=== PATIENT | female | born 1990 | race Caucasian/White ===

== ENCOUNTER 2019-10-27 04:56 | Inpatient (IN) | payer OTHER ==
[~2019-10-27] VITALS: Ht 157.5 cm; Wt 76.2 kg
[2019-10-27 05:05] VITALS: Ht 157.5 cm; Wt 76.2 kg
--- NOTE | 2019-10-27 05:19 | NUR ---
PT BIBA FROM [facility]. PT HAD HER G-TUBE DISLODGED S/P HAVING AN UNWITNESSED FALL. PER THE [employer] SOLUTION ARCHITECT AT [facility], PT WAS FOUND ON HER LEFT SIDE, DENIED ANY PAIN. PT IS A/OX1, KNOWS HER NAME. PER THE MEDIC, PT IS CONFUSED AT BASELINE. NO TRAUMA NOTED TO HEAD. PT IS TRACH'D. BREATHING IS E/U ON RA.
--- NOTE | 2019-10-27 06:36 | NUR ---
DR. CARLTON AT BEDSIDE ATTEMPTED TO REINSERT G-TUBE WITH NO SUCCESS. G-TUBE SITE COVERED ISLAND DRESSING
--- NOTE | 2019-10-27 06:47 | NUR ---
BOILER MAKER AT BEDSIDE FOR BLOOD DRAW
[2019-10-27 07:00] LABS: BASOPHIL % 0.6 % (0-2); PLATELET COUNT 255 x10^3mcL (130-400); RED CELL DISTRIBUTION WIDTH 13.3 % (11.5-14.5)
[2019-10-27] MEDS ORDERED: NOVAPLUS E40 MG/0.4 (07:05)
[2019-10-27] MEDS ORDERED: DILANTIN KAPSEA30 MG (07:05)
[2019-10-27] MEDS ORDERED: KEPPRA100 MG/M1 (07:05)
[2019-10-27 07:07] LABS: CALCIUM 8.9 mg/dL (8.5-10.1); CARBON DIOXIDE 32.1 mmol/L (21-32); CHLORIDE SERUM 100 mmol/L (98-107); CREATININE SERUM 0.5 mg/dL (0.6-1.0); GFR1 > 60 mL/min; GLUCOSE SERUM 97 mg/dL (74-106); POTASSIUM SERUM 3.6 mmol/L (3.5-5.1); SODIUM SERUM 138 mmol/L (136-145)
--- NOTE | 2019-10-27 07:14 | NUR ---
REPORT GIVEN TO ILIANA FOR CONTINUITY OF CARE. ALL QUESTIONS/CONCERNS ADDRESSED. PT'S MOTHER AT BEDSIDE.
[2019-10-27 07:16] LABS: ALBUMIN 3.4 g/dL (3.4-5.0); ALKALINE PHOSPHATASE 196 U/L (46-116); ALT/SGPT 47 U/L (14-59); AST/SGOT 19 U/L (15-37); BILIRUBIN TOTAL 0.2 mg/dL (0.20-1.00); CHOLESTEROL 170 mg/dL (<200); CHOLESTEROL/HDL RATIO 2.9; HDL CHOLESTEROL 59 mg/dL (40-60); TOTAL PROTEIN, SERUM 8.1 g/dL (6.4-8.2); TRIGLYCERIDES 63 mg/dL (<150)
--- NOTE | 2019-10-27 07:21 | NUR ---
RECEIVED REPORT FROM ASH MARINELLI. ASSUMED CARE. PT A/O X1. KNOWS NAME AND . KEEPS ASKING WHERE SHE IS REPEATEDLY. MOM AT BEDSIDE. TRACH AT RA. RESP E/U. NAD NOTED. WILL CONT TO MONITOR.
--- NOTE | 2019-10-27 08:24 | NUR ---
GAVE REPORT TO RICKY ON MS FLOOR
--- NOTE | 2019-10-27 09:00 | NUR ---
RECEIVED PT FROM ER. PT LAYING IN BED, MOTHER AT BEDSIDE. 29F PRESENTED TO ER AFTER HAVING A FALL AT [facility] HOME AND ASSOCIATED GT DISPLACEMENT. PT A/O TO SELF ONLY. TRACH WITH PMV TO RA, BREATHING EVEN AND UNLABORED. LUNGS CTA. NON PRODUCTIVE COUGH FOR AROUND 2 WEEKS PER MOM. PT WITH SCAR TO LEFT SIDE OF HEAD, DRY, NO REDNESS OR DRAINAGE, BUTT SAWYER. GT STOMA PINK WITH DRESSING. SEIZURE PRECAUTIONS IN PLACE. DENIES CANTU, DIZZINESS, PAIN. PT INCONTINENT OF BOWEL AND BLADDER. ACTIVE BOWEL SOUNDS. UNKNOWN LAST BM. WILL CONTINUE TO MONITOR. CALL LIGHT IN REACH. BED IN LOWEST POSITION.
[2019-10-27 09:05] LABS: MAGNESIUM 2.1 mg/dL (1.8-2.4); PHOSPHOROUS 3.6 mg/dL (2.5-4.9)
[2019-10-27] MEDS ORDERED: MULTI-VITAMIN W1 TAB GT (09:47)
[2019-10-27] MEDS ORDERED: CLARITIN10 MG GT (09:48)
[2019-10-27] MEDS ORDERED: DILANTIN100 MG GT (09:49)
[2019-10-27] MEDS ORDERED: KEPPRA500 MG GT (09:50)
[2019-10-27] MEDS ORDERED: DSS250 MG GT (09:52)
--- NOTE | 2019-10-27 10:28 | NUR ---
DR. CHIRINOS AT BEDSIDE. ATTEMPTED GT INSERTION, UNSUCCESSFUL. PER DR CHIRINOS WILL HAVE TO BE INSERTED TOMORROW. COVER STOMA WITH DRY DRESSING. PT LAYING IN BED WITH MOM AT BEDSIDE. WILL CONTINUE TO MONITOR. CALL LIGHT IN REACH. BED IN LOWEST POSITION.
[2019-10-27 11:35] LABS: microscopic required? NO
[2019-10-27 11:36] VITALS: BP 95/64
[2019-10-27 12:09] LABS: urine erythrocyte NEGATIVE (NEGATIVE)
--- NOTE | 2019-10-27 14:19 | NUR ---
PT LAYING IN BED RESTING. NO ACUTE DISTRESS NOTED. ADMIN IV ZOSYN. WILL CONTINUE TO MONITOR. CALL LIGHT IN REACH. BED IN LOWEST POSITION.
[2019-10-27 16:54] VITALS: BP 109/70
--- NOTE | 2019-10-27 17:17 | NUR ---
PT LAYING IN BED WITH MOM AT THE BEDSIDE. ADMIN FLU SHOT TO RIGHT ARM. PT TOLERATED WELL. MOM ASKING IF SHE COULD STAY OVERNIGHT WITH THE PT, INFORMED HER SHE NEEDS TO TALK TO FIREBRICK LAYER HELPER CHARGE NURSE TO GET OK. INFORMED MOM OF POC AND THAT SEIZURE MEDS WILL BE ADMIN VIA IV STARTING TONIGHT. WILL CONTINUE TO MONITOR. CALL LIGHT IN REACH. BED IN LOWEST POSITION.
--- NOTE | 2019-10-27 19:25 | NUR ---
PT RECEIVED A/O X1, CONFUSED, ABLE TO MAKE NEEDS KNOWN AND ANSWER SIMPLE QUESTIONS, SEIZURE PRECAUTIONS IN PLACE. MED-SURG, PT DENIES ANY CP/PRESSURE. PULSES PALPABLE, NO EDEMA PRESENT. BREATHING IS EVEN AND UNLABORED, TRACH W/ PMV ON RA NOTED, TRACHEA MIDLINE, NO RESP DISTRESS NOTED. ABD SOFT AND NONDISTENDED, PT DENIES ANY N/V. PT ADMITTED FOR GTUBE REPLACEDMENT, DRY DRSG NOTED TO GTUBE STOMA IN PLACE, CDI. VOIDS FREEY, EPISODES OF INCONTINENCE. GENERALIZED WEAKNESS, PT ABLE TO TURN AND REPOSITION INDEPENDENTLY. MOTHER AT BEDSIDE. IVF INFUSING WELL TO RAC, PATENT AND INTACT. NO ACUTE DISTRESS NOTED. BED IN LOWEST SETTING, SIDE RAILS UP X2, CALL LIGHT WITHIN REACH. WILL CONT TO MONITOR.
[2019-10-27 19:49] VITALS: BP 105/60
--- NOTE | 2019-10-27 21:30 | NUR ---
CALLED [facility] AND SPOKE WITH PHARMACIST-JULIANA REGARDING DILANTIN ADMINISTRATION. PER JULIANA, USE 0.22 FILTER AND OKAY TO ADMINISTER VIA IVPB WITH 50 ML NS OVER 30 MINS OR OKAY TO GIVE SLOW IVP FOR 4-5 MINS. WILL ADMINISTER MEDICATION APPROPRIATELY.
[2019-10-28 00:49] VITALS: BP 105/60
--- NOTE | 2019-10-28 00:57 | NUR ---
PT RESTING IN BED WITH EYES CLOSED, BUT IS EASILY AROUSABLE. BREATHING IS EVEN AND UNLABORED, NO RESP DISTRESS NOTED. NO S/S OF PAIN OBSERVED. IVF INFUSING WELL, SITE WNL. NO ACUTE DISTRESS NOTED. MOTHER AT BEDSIDE. PT NPO AT THIS TIME FOR PEG TUBE PLACEMENT, CONSENT FORMS AND CHECKLIST PLACED IN CHART. CALL LIGHT WITHIN REACH. WILL CONT TO MONITOR.
[2019-10-28 04:38] VITALS: BP 113/63
--- NOTE | 2019-10-28 06:00 | NUR ---
PT SLEPT WELL THROUGHOUT THE EVENING. BREATHING IS EVEN AND UNLABORED, TRACH COLLAR W/ SMV IN PLACE, NO RESP DISTRESS NOTED. PT SCHEDULED FOR PEG PLACEMENT TODAY, PT REMAINS NPO. NO ACUTE CHANGES ENCOUNTERED DURING SHIFT. ALL NEEDS MET AND ANTICIPATED. IVF INFUSING WELL, SITE WNL. SEIZURE PRECAUTIONS MAINTAINED, NO SEIZURE ACTIVITY NOTED DURING SHIFT. CALL LIGHT WITHIN REACH. WILL ENDORSE CARE TO AM NURSE.
[2019-10-28 06:05] LABS: BASOPHIL % 0.6 % (0-2); PLATELET COUNT 241 x10^3mcL (130-400); RED CELL DISTRIBUTION WIDTH 13.1 % (11.5-14.5)
[2019-10-28 06:42] LABS: CALCIUM 8.9 mg/dL (8.5-10.1); CARBON DIOXIDE 27.9 mmol/L (21-32); CHLORIDE SERUM 105 mmol/L (98-107); CREATININE SERUM 0.5 mg/dL (0.6-1.0); GFR1 > 60 mL/min; GLUCOSE SERUM 84 mg/dL (74-106); POTASSIUM SERUM 3.8 mmol/L (3.5-5.1); SODIUM SERUM 140 mmol/L (136-145)
--- NOTE | 2019-10-28 07:29 | NUR ---
PT IN NO ACUTE DISTRESS. CONTINUITY OF CARE ENDORSED TO LAM MARINELLI. ALL QUESTIONS AND CONCERNS ADDRESSED.
--- NOTE | 2019-10-28 07:37 | NUR ---
Report received from Melanie Atkinson RN. Patient in stable condition. Mother at bedside. Will continue to monitor.
--- NOTE | 2019-10-28 08:14 | NUR ---
Report given to MARTHA Hayes RN. Patient to have [facility] LAB DRAW. Order put in. Lab notified. MARTHA Hayes RN made aware. Patient and Patient's mother made aware. Will continue to monitor. Call light within reach.
[2019-10-28 09:18] VITALS: BP 100/65
--- NOTE | 2019-10-28 11:07 | NUR ---
Patient returned back from GI. No signs of distress noted. Mother at bedside. Will continue to monitor.
[2019-10-28 11:14] VITALS: BP 111/76
--- NOTE | 2019-10-28 11:57 | NUR ---
-PT WAS SEEN FOR DYSPHAGIA. PT HAD S/S OF ASPIRATION FOR PUREE DIET TRIALS.PT NEEDS ST SERVICE AND 2-3 TRIALS BEFORE UPGRADE TO PO. RECOMMENDATION CONTINUE WITH NPO STATUS.
--- NOTE | 2019-10-28 11:58 | NUR ---
ST Gurpreet, explained that patient to remain NPO at this time. Swallow test to be performed with hero suctioning assistance tomorrow. Will endorse to next shift and continue to monitor. Call light within reach.
--- NOTE | 2019-10-28 12:02 | NUR ---
AMMY Payan from [facility] at called to inquire whether resident of [facility] will be discharged today or not. Explained the plan for tomorrow regarding ST recommendations. Will continue to monitor. Call light within reach.
--- NOTE | 2019-10-28 12:17 | NUR ---
Patient found sitting in recliner. IV pulled out. Patient was asking where her mother was. Mother's phone number called on hospital telephone. Patient talking to mother on phone. Will continue to monitor. Call light within reach.
--- NOTE | 2019-10-28 12:57 | NUR ---
CALLED AND SPOKE WITH SAIMA LINDO TO CLAIRIFY TUBE FEED ORDER.
[2019-10-28 16:21] VITALS: BP 107/77
--- NOTE | 2019-10-28 19:20 | NUR ---
REPORT RECEIVED FROM DAY SHIFT RN. PATIENT WAS SEEN RESTING COMFORTABLY IN BED WITH FAMILY AT BEDSIDE. NO DISTRESS NOTED. BREATHING EVEN AND UNLABORED ON ROOM ARE. TRACH IN PLACE WITH PMV; INTACT. A/OX1; CONFUSED. ABLE TO FOLLOW COMMANDS AND MAKE NEEDS KNOWN. SEIZURE PRECAUTIONS IN PLACE FOR HX OF SEIZURE DISORDERS. GTUBE NOTED TO LEFT ABD W/ TUBE FEEDING JEVITY 1.2 AT 50ML/HR (GOAL) WITH FWF 70ML Q4H. 0ML OF RESIDUALS NOTED. TOLERATING WELL. IV TO THE RAC INFUSING WELL. PATENT AND INTACT. NO REDNESS OR SWELLING NOTED. DENIES CP. NO C/O PAIN. NPO. COMFORT AND SAFETY MEASURES IN PLACE. BED IS LOCKED AND IN THE LOWEST POSITION. SIDE RAILS UP X2. CALL LIGHT WITHIN REACH. WILL CONTINUE TO MONITOR.
--- NOTE | 2019-10-28 19:50 | NUR ---
REPORT GIVEN TO ROADS SUPERVISOR RN. PATIENT IN STABLE CONDITION. PEG TUBE WORKING. IV C/D/I. MOTHER AT BEDSIDE. ALL NEEDS MET.
[2019-10-28 21:15] VITALS: BP 101/56
--- NOTE | 2019-10-28 21:15 | NUR ---
CALLED PHARMACY TO CLARIFY DILANTIN AND KEPPRA ADMINISTRATION. MORNING DOSE GIVEN LATE DUE TO PATIENT BEING IN PROCEDURE, PHARMACIST NUSRAT CHANGE TIME AND WILL CALRIFY WITH ROUTE SAIMA LINDO.
--- NOTE | 2019-10-29 01:17 | NUR ---
IN TO ADMINISTER SCHEDULED DILANTIN. USED 0.22 MICRON IN-LINE FILTER PER ORDER. PATIENT DENIES PAIN. BREATHING E/U ON RA. TRACH IN PLACE. TUBE FEEDING INFUSING WELL. MOTHER AT BEDSIDE. SAFETY MEASURES IN PLACE. CALL LIGHT IS WITHIN REACH. WILL CONTINUE TO MONITOR.
--- NOTE | 2019-10-29 03:18 | NUR ---
RESTING W/ EYES CLOSED. NO DISTRESS NOTED. BREATHING E/U ON ROOM AIR. TRACH IN PLACE. NO SOB OR RESP DISTRESS NOTED. SAFETY MEASURES IN PLACE. WILL CONTINUE TO MONITOR.
[2019-10-29 06:08] VITALS: BP 106/43
--- NOTE | 2019-10-29 06:09 | NUR ---
RESTED IN LONG INTERVALS THROUGHOUT THE NIGHT. NO ACUTE CHANGES NOTED. NO DISTRESS NOTED. BREATHING E/U ON ROOM AIR. NO SOB NOTED. TRACH WITH PVM IN PLACE. DENIES CP. NO C/O PAIN. IV TO THE RAC. PATENT AND INTACT. NO REDNESS OR SWELLING NOTED. GTUBE TO MID ABD IN PLACE INFUSING WELL. RESIDUALS CHECKED 20ML NOTED AND RETURNED; TOLERATING WELL. FORMULA JEVITY 1.2 CONTINUOUS FEEDING AT 50ML/HR W/ FWF 70ML Q4H. MOTHER AT BEDSIDE THROUGHOUT THE NIGHT. ALL NEEDS AND CONCERNS ADDRESSED. SAFETY MEASURES IN PLACE. CALL LIGHT WITHIN REACH. WILL ENDORSE CARE TO DAY SHIFT RN.
[2019-10-29 06:55] LABS: CALCIUM 8.4 mg/dL (8.5-10.1); CARBON DIOXIDE 27.6 mmol/L (21-32); CHLORIDE SERUM 104 mmol/L (98-107); CREATININE SERUM 0.5 mg/dL (0.6-1.0); GFR1 > 60 mL/min; GLUCOSE SERUM 104 mg/dL (74-106); POTASSIUM SERUM 3.8 mmol/L (3.5-5.1); SODIUM SERUM 140 mmol/L (136-145)
[2019-10-29 06:58] LABS: PLATELET COUNT 237 x10^3mcL (130-400); RED CELL DISTRIBUTION WIDTH 13.3 % (11.5-14.5)
--- NOTE | 2019-10-29 07:10 | NUR ---
REVIEVED PT RESTING IN BED WITH NO C/O PAIN OR DISTRESS. A/OX1-2 WITH CONFUSION. SEIZURE PRECAUTIONS IN PLACE. LUNGS CTAB. TRACH WITH PMV AND ON RA. GT IN PLACE/CDI AND RECIEVING JEVITY 1.2 AT 50ML/HR. RAC IV CDI AND PATENT. FAMILY AT BEDSIDE. SAFETY PRECAUTIONS IN PLACE, CALL LIGHT WITHIN REACH, WILL MONITOR.
--- NOTE | 2019-10-29 07:55 | NUR ---
PT WITH RHONCHI B/S. PT REFUSED SUCTIONING. NO RESP DISTRESS NOTED. PT DENIES SOB. WILL MONITOR
[2019-10-29 08:38] VITALS: BP 115/80
[2019-10-29] MEDS ORDERED: CIPRO500 MG PO (09:10)
--- NOTE | 2019-10-29 11:00 | NUR ---
PT STABLE WITH NO C/O ANY DISTRESS. MOTHER AT BEDSIDE. SAFETY [id number] IN PLACE, CALL LIGHT WITHIN REACH, WILL MONITOR.
[2019-10-29 13:10] LABS: BAND NEUTROPHIL 1 % (0-10); BASOPHIL 0 % (0-2); MONOCYTE 23 % (0-7); SEGMENTED NEUTROPHILS 61 % (37-75)
[2019-10-29 13:11] LABS: PLATELET MORPHOLOGY PLATELETS DECREASED; rbc morphology (normal/abnorm) NORMAL (NORMAL)
[2019-10-29 14:19] VITALS: BP 115/80
[2019-10-29 14:21] VITALS: BP 99/48
--- NOTE | 2019-10-29 15:35 | NUR ---
PT STABLE TO DISCHARGE PER MD ORDER. REPORT CALLED INTO [facility] AT [phone], SPOKE WITH YVES CHANDLER. ALL DISCHARGE INSTRUCTIONS, EDUCATION, AND PRESCDIPTIONS GIVEN TO PT MOTHER, BOTH PT AND MOTHER VERBALIZE UNDERSTANDING. IV REMOVED WITH CATHETER INTACT, NO REDNESS OR INFLAMMATION NOTED TO SITE. ID BAND REMOVED FROM PT ARM. GT FLUSHED AND CLAMPED. PT ESCORTED DOWN TO LOBBY VIA WC BY DENTAL CERAMIST ASSISTANT AND MOTHER, ALL PERSONAL BELONGINGS IN HAND.
== END 2019-10-29 15:35 | DRG 254 ==
LOC: ED 04:56 → MU 07:18
PROVIDERS: Internal Medicine Gastroenterology; Specialist; ADMIT Family Medicine
PROC: 0DH63UZ Insertion of Feeding Device into Stomach, Percutaneous Approach (ICD-10-PCS; 2019-10-28)
PROC: 0DP68UZ Removal of Feeding Device from Stomach, Via Natural or Artificial Opening Endoscopic (ICD-10-PCS; principal; 2019-10-28 09:30)
DX: Z43.1 Encounter for attention to gastrostomy (principal); J96.10 Chronic respiratory failure, unspecified whether with hypoxia or hypercapnia; Z93.0 Tracheostomy status; R56.9 Unspecified convulsions; D72.829 Elevated white blood cell count, unspecified; Z79.899 Other long term (current) drug therapy; Z86.73 Personal history of transient ischemic attack (TIA), and cerebral infarction without residual deficits; Y93.9 Activity, unspecified; Y92.9 Unspecified place or not applicable; Y99.9 Unspecified external cause status; W18.39XA Other fall on same level, initial encounter
CPT/HCPCS: 43235; 43760; 90658; 92526-GN; 92610-GN; G0378; J1165; J1200; J1610; J1953; J2250; J2270; J2310; J2543; J3010; J3490; J7030; J7050; Q0092